=== PATIENT | male | born 1985 ===

== ENCOUNTER → 2024-08-14 | Outpatient (CLI) | payer OTHER ==
[~2024-08-14] MED LIST: CEPHALEXIN500 M1 PO; GADOTERATE MEGLUMINE 10 MMOL/20 ML VIAL IV ONE; K LYTE PO; LOMOTIL 0.025 M1 TAB PO; Zofran4 MG PO; [UNRECOGNIZED DRUG - OTHER] PO
== END | disposition home or self-care (01) ==
LOC: MRI 02:17
PROVIDERS: ATTEND Family Medicine
DX: J34.89 Other specified disorders of nose and nasal sinuses (principal)